=== PATIENT | male | born 1970 | race African-American/Black ===

== ENCOUNTER → 2017-06-01 | Outpatient (CLI) | payer OTHER ==
--- NOTE | 2017-06-01 10:11 | RAD ---
Cervical spine 3 views 06/01/2017 Indication: Neck pain. Comparison: None. Findings: There is straightening of the cervical spine with no acute fracture or subluxation. There is multilevel cervical disc degeneration greatest to a moderate degree with the space narrowing and marginal osteophyte formation at C5-C6 and to a mild degree at C3-C4, C4-C5 and C6-C7. No significant prevertebral soft tissue thickening. Impression: 1. Straightening of the cervical spine which may be positional or due to muscle spasm with no acute cervical spine fracture or subluxation. 2. Multilevel cervical disc degeneration, greatest to moderate degree, at C5-C6.
== END | disposition home or self-care (01) ==
LOC: RAD 08:57
PROVIDERS: ATTEND Family Medicine
DX: M50.322 Other cervical disc degeneration at C5-C6 level (principal)
CPT/HCPCS: 72040